=== PATIENT | female | born 1935 | race Caucasian/White ===

== ENCOUNTER 2016-10-10 14:02 | Outpatient (CLI) | payer MEDICARE ==
[2016-10-10 14:55] LABS: Bilirubin Negative (Negative); Blood, Urine Small (Negative); Clarity Clear (Clear); Glucose, Urine (Dipstick) Negative (Negative); Leukocyte Negative (Negative); Nitrite Negative (Negative); Protein, Urine (Dipstick) Negative (Neg-Trace); Specific Gravity, Urine 1.025 (1.005-1.030); Urobilinogen 0.2 mg/dL (0.2-1.0); pH, Urine 5.5 (5.0-9.0)
[2016-10-10 15:43] LABS: Bacteria/HPF Rare-Few HPF (None Seen); RBC/HPF 0-3 HPF (0-3); Squamous Epithelial 0-3 HPF (0-3); WBC/HPF 0-3 HPF (0-3)
== END 2016-10-10 14:03 | disposition home or self-care (01) ==
LOC: MADLABBHPM 14:02
PROVIDERS: ATTEND Family Medicine
DX: R31.21 Asymptomatic microscopic hematuria (principal)
CPT/HCPCS: 36415; 81001

== ENCOUNTER 2016-12-20 10:07 | Outpatient (CLI) | payer MEDICARE ==
[2016-12-20 10:30] LABS: Cocaine Metabolite Screen Not Detected (NotDetected); Methamphetamine Not Detected (NotDetected); Phencyclidine (PCP) Not Detected (NotDetected); THC/Cannabinoid Screen Not Detected (NotDetected)
[2016-12-20 10:31] LABS: Amphetamine Not Detected (NotDetected); Barbiturates Screen Not Detected (NotDetected); Benzodiazepine Screen Not Detected (NotDetected); Medtox Control Line Valid? VALID (VALID); Methadone Not Detected (NotDetected); Opiate Screen Not Detected (NotDetected); Oxycodone Screen Not Detected (NotDetected); Tricyclic Screen Not Detected (NotDetected)
== END 2016-12-20 10:08 | disposition home or self-care (01) ==
LOC: MADLABBHPM 10:07
PROVIDERS: ATTEND Family Medicine
DX: G89.4 Chronic pain syndrome (principal)
CPT/HCPCS: 80306

== ENCOUNTER 2017-02-04 14:54 | Emergency (ER) | payer MEDICARE ==
[2017-02-04 15:38] LABS: #Eosinphils 0.1 thou/uL (0.0-0.7); #Lymphocytes 1.8 thou/uL (1.20-3.40); #Monocytes 0.4 thou/uL (0.11-0.59); #Neutrophils 3.1 thou/uL (1.40-6.50); %Basophils 0.7 % (0.0-1.0); %Eosinophils 1.8 % (0.0-10.0); %Lymphocytes 32.4 % (21.0-51.0); %Monocytes 7.5 % (0.0-10.0); %Neutrophils 57.6 % (42.0-75.0); Hemoglobin 13.7 g/dL (12.0-16.0); Mean Corpuscular HGB CONC 33.6 g/dL (32.0-36.0); Mean Corpuscular Hemoglobin 29.4 pg (27.0-31.0); Mean Corpuscular Volume 87.6 fl (81.0-99.0); Mean Platelet Volume 6.8 fL (7.4-10.4); Platelet Count 231 thou/uL (130-400); RBC Distribution Width 12.2 % (11.5-14.5); Red Blood Cell (RBC) Count 4.67 mill/uL (4.20-5.40); White Blood Cell (WBC) Count 5.4 thou/uL (4.8-10.8)
[2017-02-04 15:55] LABS: ALT (SGPT) 13 U/L (8-55); AST (SGOT) 14 U/L (5-34); Albumin 3.9 g/dL (3.4-4.8); Alkaline Phosphatase 109 U/L (40-150); Anion Gap 14 mmol/L (10-20); Bilirubin, Total 0.5 mg/dL (0.2-1.2); Calc. Creatinine Clearance 0 mL/min (70-130); Calcium 8.9 mg/dL (7.8-10.44); Carbon Dioxide 28 mmol/L (23-31); Chloride 107 mmol/L (98-107); Estimated GFR-MDRD 67; Globulin 2.3 g/dL (2.4-3.5); Glucose 98 mg/dL (83-110); Potassium 3.5 mmol/L (3.5-5.1); Protein, Total 6.2 g/dL (5.8-8.1); Sodium 145 mmol/L (136-145)
--- NOTE | 2017-02-04 16:05 | RAD ---
PORTABLE UPRIGHT FRONTAL CHEST RADIOGRAPH: Date: 02-04-17 Comparison: 09-15-16 History: Chest pain. FINDINGS: Coronary arterial calcification and/or stent material noted. Mild increased linear interstitial dens ity is noted, stable. No pneumothorax or pleural fluid. No focal consolidation or alveolar edema. IMPRESSION: Stable appearance to the chest. No acute findings. POS: [facility]
[2017-02-04 16:08] LABS: BUN (Urea Nitrogen) 12 mg/dL (9.8-20.1)
== END 2017-02-04 18:20 | disposition left against medical advice (07) ==
LOC: MADERS 14:54
DX: R07.9 Chest pain, unspecified (principal); E78.5 Hyperlipidemia, unspecified; E78.00 Pure hypercholesterolemia, unspecified; I10 Essential (primary) hypertension; I25.2 Old myocardial infarction
CPT/HCPCS: 71010; 80053; 84484; 85025; 93005

== ENCOUNTER 2017-03-07 16:23 | Outpatient (CLI) | payer MEDICARE | END 2017-03-07 16:24 | disposition home or self-care (01) | LOC: MADLABBHPM 16:23 | PROVIDERS: ATTEND Family Medicine | DX: R82.90 Unspecified abnormal findings in urine (principal) | CPT/HCPCS: 87086 ==

== ENCOUNTER 2017-04-02 14:18 | Emergency (ER) | payer MEDICARE ==
[~2017-04-02 14:18] MED LIST: Sodium Chloride Irrig Solution 250 ML BOT ONE
[2017-04-02] MEDS ORDERED: Lidocaine 1% 20 ML MDV ONE (14:44)
[2017-04-02] MEDS ORDERED: HYDROcodone/Acetaminophen 10/325 mg Tablet ONE (14:53)
== END 2017-04-02 15:10 | disposition home or self-care (01) ==
LOC: MADERS 14:18
DX: L02.11 Cutaneous abscess of neck (principal); E78.5 Hyperlipidemia, unspecified; E78.00 Pure hypercholesterolemia, unspecified; I10 Essential (primary) hypertension; I25.2 Old myocardial infarction; Z86.73 Personal history of transient ischemic attack (TIA), and cerebral infarction without residual deficits; Z79.82 Long term (current) use of aspirin; Z79.899 Other long term (current) drug therapy
CPT/HCPCS: 10060; J2001

== ENCOUNTER 2017-08-12 18:26 | Emergency (ER) | payer MEDICARE ==
[2017-08-12 19:08] LABS: #Basophils 0.1 thou/uL (0.0-0.2); #Eosinphils 0.1 thou/uL (0.0-0.7); #Lymphocytes 1.9 thou/uL (1.20-3.40); #Monocytes 0.4 thou/uL (0.11-0.59); #Neutrophils 4.5 thou/uL (1.40-6.50); %Eosinophils 1.1 % (0.0-10.0); %Lymphocytes 27.5 % (21.0-51.0); %Monocytes 5.9 % (0.0-10.0); %Neutrophils 64.6 % (42.0-75.0); Hemoglobin 15.5 g/dL (12.0-16.0); Mean Corpuscular Hemoglobin 29.7 pg (27.0-31.0); Mean Corpuscular Volume 89.8 fl (81.0-99.0); Mean Platelet Volume 6.4 fL (7.4-10.4); Platelet Count 307 thou/uL (130-400); RBC Distribution Width 12.9 % (11.5-14.5); Red Blood Cell (RBC) Count 5.22 mill/uL (4.20-5.40)
[2017-08-12 19:19] LABS: ALT (SGPT) 11 U/L (8-55); AST (SGOT) 15 U/L (5-34); Albumin 4.4 g/dL (3.4-4.8); Alkaline Phosphatase 121 U/L (40-150); Anion Gap 21 mmol/L (10-20); BUN (Urea Nitrogen) 15 mg/dL (9.8-20.1); Bilirubin, Total 0.4 mg/dL (0.2-1.2); Calc. Creatinine Clearance 0 mL/min (70-130); Calcium 9.2 mg/dL (7.8-10.44); Carbon Dioxide 23 mmol/L (23-31); Chloride 104 mmol/L (98-107); Estimated GFR-MDRD 55; Glucose 115 mg/dL (83-110); Potassium 3.6 mmol/L (3.5-5.1); Protein, Total 7.4 g/dL (6.0-8.3); Sodium 144 mmol/L (136-145)
[2017-08-12 19:23] LABS: Troponin I Less than 0.010 ng/mL (< 0.028)
[2017-08-12 19:49] LABS: Bilirubin Negative (Negative); Blood, Urine Moderate (Negative); Glucose, Urine (Dipstick) Negative (Negative); Leukocyte Negative (Negative); Nitrite Negative (Negative); Protein, Urine (Dipstick) 30 mg/dL (Neg-Trace); Urobilinogen 0.2 mg/dL (0.2-1.0); pH, Urine 5.5 (5.0-9.0)
[2017-08-12 19:51] LABS: Bacteria/HPF Rare-Few HPF (None Seen); Clarity Hazy (Clear); WBC/HPF 0-3 HPF (0-3)
--- NOTE | 2017-08-12 20:35 | CT ---
HEAD CT NONCONTRAST: 08/12/17 No prior comparison. FINDINGS: There is mild to moderate chronic microvascular ischemic disease without acute intracranial hemorrha ge or mass effect, midline shift or ventriculomegaly. IMPRESSION: No acute intracranial hemorrhage or mass effect. Mild to moderate chronic microvascular ischemic disease. POS: [facility]
--- NOTE | 2017-08-13 07:10 | RAD ---
FRONTAL VIEW CHEST: Date: 08/12/17 INDICATION: Altered mental status. COMPARISON: 02/04/17. FINDINGS: There is mild hyperinflation of the lungs. No consolidation, effusion, or discrete pneumothorax. Car diomediastinal silhouette is accentuated by portable technique. There is evidence of prior sternotom y. IMPRESSION: Hyperinflated lungs. No lobar consolidation. POS: [facility]
== END 2017-08-12 20:45 | disposition home or self-care (01) ==
LOC: MADERS 18:26
DX: R41.82 Altered mental status, unspecified (principal); E78.5 Hyperlipidemia, unspecified; I10 Essential (primary) hypertension; I25.2 Old myocardial infarction; Z79.82 Long term (current) use of aspirin; Z79.899 Other long term (current) drug therapy
CPT/HCPCS: 70450; 71010; 80053; 81003; 81015; 82553; 84443; 84484; 85025; 93005

== ENCOUNTER 2017-10-14 14:20 | Outpatient (CLI) | payer MEDICARE, OTHER ==
[2017-10-14 15:12] LABS: ALT (SGPT) 12 U/L (8-55); AST (SGOT) 16 U/L (5-34); Albumin 4.3 g/dL (3.4-4.8); Alkaline Phosphatase 120 U/L (40-150); Anion Gap 18 mmol/L (10-20); BUN (Urea Nitrogen) 22 mg/dL (9.8-20.1); Bilirubin, Total 0.3 mg/dL (0.2-1.2); Calc. Creatinine Clearance 0 mL/min (70-130); Calcium 9.3 mg/dL (7.8-10.44); Carbon Dioxide 28 mmol/L (23-31); Chloride 101 mmol/L (98-107); Estimated GFR-MDRD 51; Globulin 3.1 g/dL (2.4-3.5); Glucose 106 mg/dL (83-110); Potassium 4.2 mmol/L (3.5-5.1); Protein, Total 7.4 g/dL (6.0-8.3); Sodium 143 mmol/L (136-145)
[2017-10-14 15:27] LABS: Thyroid Stimulating Hormone 4.1005 uIU/mL (0.35-4.94)
--- NOTE | 2017-10-14 15:41 | RAD ---
LEFT RIBS THREE VIEWS: History: Fall. Left chest wall injury. FINDINGS/IMPRESSION: No displaced rib fracture or pneumothorax are apparent. POS: [facility]
[2017-10-14 20:22] LABS: Hemoglobin A1c 5.1 % (4.0-6.0)
[2017-10-15 08:28] LABS: Free T4 (Free Thyroxine) 1.06 ng/dL (0.70-1.48)
== END 2017-10-14 14:21 | disposition home or self-care (01) ==
LOC: MADRAD 14:20
PROVIDERS: ATTEND Family Medicine
DX: R94.6 Abnormal results of thyroid function studies (principal); R73.9 Hyperglycemia, unspecified
CPT/HCPCS: 36415; 80053; 83036; 84439; 84443

== ENCOUNTER 2017-12-02 15:16 | Emergency (ER) | payer MEDICARE, OTHER ==
[~2017-12-02 15:16] MED LIST changes: +Sodium Chloride 0.9% 1,000 ML BAG ONE; -Sodium Chloride Irrig Solution 250 ML BOT ONE
[2017-12-02 15:37] LABS: #Eosinphils 0.3 thou/uL (0.0-0.7); #Monocytes 0.5 thou/uL (0.11-0.59); #Neutrophils 4.9 thou/uL (1.40-6.50); %Basophils 0.4 % (0.0-1.0); %Eosinophils 3.8 % (0.0-10.0); %Lymphocytes 25.7 % (21.0-51.0); %Monocytes 6.7 % (0.0-10.0); %Neutrophils 63.3 % (42.0-75.0); Hemoglobin 14.9 g/dL (12.0-16.0); Mean Corpuscular Hemoglobin 29.5 pg (27.0-31.0); Mean Corpuscular Volume 89.5 fl (81.0-99.0); Mean Platelet Volume 6.3 fL (7.4-10.4); Platelet Count 296 thou/uL (130-400); Red Blood Cell (RBC) Count 5.05 mill/uL (4.20-5.40); White Blood Cell (WBC) Count 7.8 thou/uL (4.8-10.8)
[2017-12-02 15:53] LABS: ALT (SGPT) 10 U/L (8-55); AST (SGOT) 14 U/L (5-34); Acetaminophen Less than 6.0 mcg/mL (10.0-30.0); Albumin 4.4 g/dL (3.4-4.8); Alcohol Less than 10 mg/dL (Less than 10); Alkaline Phosphatase 122 U/L (40-150); Anion Gap 23 mmol/L (10-20); BUN (Urea Nitrogen) 16 mg/dL (9.8-20.1); Bilirubin, Total Less than 0.2 mg/dL (0.2-1.2); CK (CPK) 62 U/L (29-168); Calc. Creatinine Clearance 0 mL/min (70-130); Calcium 9.4 mg/dL (7.8-10.44); Carbon Dioxide 25 mmol/L (23-31); Chloride 102 mmol/L (98-107); Estimated GFR-MDRD 48; Glucose 144 mg/dL (83-110); Potassium 3.5 mmol/L (3.5-5.1); Protein, Total 7.4 g/dL (6.0-8.3); Salicylate Less than 8.0 mg/dL (15.0-30.0); Sodium 146 mmol/L (136-145)
[2017-12-02 16:00] LABS: Lactic Acid 3.2 mmol/L (0.5-2.2)
[2017-12-02 16:18] LABS: Bilirubin Negative (Negative); Blood, Urine Trace (Negative); Glucose, Urine (Dipstick) Negative (Negative); Leukocyte Negative (Negative); Nitrite Negative (Negative); Protein, Urine (Dipstick) Negative (Neg-Trace); Specific Gravity, Urine 1.015 (1.005-1.030); Urobilinogen 0.2 mg/dL (0.2-1.0)
[2017-12-02 16:23] LABS: Bacteria/HPF Rare-Few HPF (None Seen); Clarity Hazy (Clear); RBC/HPF 0-3 HPF (0-3); WBC/HPF None Seen HPF (0-3)
[2017-12-02 16:29] LABS: Amphetamine Not Detected (NotDetected); Barbiturates Screen Not Detected (NotDetected); Benzodiazepine Screen Not Detected (NotDetected); Cocaine Metabolite Screen Not Detected (NotDetected); Medtox Control Line Valid? VALID (VALID); Methadone Not Detected (NotDetected); Methamphetamine Not Detected (NotDetected); Opiate Screen Not Detected (NotDetected); Oxycodone Screen Not Detected (NotDetected); Phencyclidine (PCP) Not Detected (NotDetected); THC/Cannabinoid Screen Not Detected (NotDetected); Tricyclic Screen Not Detected (NotDetected)
[2017-12-02 18:36] LABS: Acetaminophen Less than 6.0 mcg/mL (10.0-30.0); Anion Gap 18 mmol/L (10-20); BUN (Urea Nitrogen) 14 mg/dL (9.8-20.1); Calc. Creatinine Clearance 0 mL/min (70-130); Calcium 8.7 mg/dL (7.8-10.44); Carbon Dioxide 27 mmol/L (23-31); Chloride 106 mmol/L (98-107); Estimated GFR-MDRD 55; Glucose 102 mg/dL (83-110); Potassium 3.1 mmol/L (3.5-5.1); Salicylate Less than 8.0 mg/dL (15.0-30.0); Sodium 148 mmol/L (136-145)
--- NOTE | 2017-12-02 19:24 | RAD ---
LEFT FOREARM TWO VIEWS: 12/02/17 HISTORY: Arm pain. FINDINGS: Radius and ulna are intact. No acute fracture, dislocation, or aggressive osseous erosions. IMPRESSION: No acute osseous abnormalities are demonstrated. POS: [facility]
[2017-12-02] MEDS ORDERED: Potassium Chloride 20 MEQ TAB ONE (19:26)
[2017-12-03 14:37] LABS: Ref Lab Test Ordered ETHYLENE GLYCOL; Reference Lab Name LABCORP
[2017-12-03 14:38] LABS: Ref Lab Test Ordered METHANOL; Reference Lab Name LABCORP
== END 2017-12-02 20:20 | disposition home or self-care (01) ==
LOC: MADERS 15:16
DX: T39.312A Poisoning by propionic acid derivatives, intentional self-harm, initial encounter (principal); I25.10 Atherosclerotic heart disease of native coronary artery without angina pectoris; I10 Essential (primary) hypertension; E78.5 Hyperlipidemia, unspecified; Z79.899 Other long term (current) drug therapy; Z86.73 Personal history of transient ischemic attack (TIA), and cerebral infarction without residual deficits
CPT/HCPCS: 36415; 80053; 80306; 80307; 81003; 81015; 82550; 83605; 83930; 84443; 85025; 93005; 96360; 96361; J7050

== ENCOUNTER 2017-12-04 14:29 | Outpatient (CLI) | payer MEDICARE ==
[2017-12-04 15:13] LABS: ALT (SGPT) 14 U/L (8-55); AST (SGOT) 20 U/L (5-34); Albumin 4.3 g/dL (3.4-4.8); Alkaline Phosphatase 105 U/L (40-150); Anion Gap 19 mmol/L (10-20); BUN (Urea Nitrogen) 12 mg/dL (9.8-20.1); Bilirubin, Total 0.5 mg/dL (0.2-1.2); Calc. Creatinine Clearance 0 mL/min (70-130); Calcium 9.2 mg/dL (7.8-10.44); Carbon Dioxide 19 mmol/L (23-31); Chloride 107 mmol/L (98-107); Estimated GFR-MDRD 56; Globulin 2.9 g/dL (2.4-3.5); Glucose 103 mg/dL (83-110); Potassium 3.8 mmol/L (3.5-5.1); Protein, Total 7.2 g/dL (6.0-8.3); Sodium 141 mmol/L (136-145)
== END 2017-12-04 14:30 | disposition home or self-care (01) ==
LOC: MADLABBHPM 14:29
PROVIDERS: ATTEND Family Medicine
DX: T39.312A Poisoning by propionic acid derivatives, intentional self-harm, initial encounter (principal)
CPT/HCPCS: 36415; 80053